=== PATIENT | female | born 1975 | race Asian ===

== ENCOUNTER 2019-12-22 09:34 | Emergency (ER) | payer OTHER ==
[~2019-12-22] VITALS: Ht 149.9 cm; Wt 49.9 kg
--- NOTE | 2019-12-22 09:36 | NUR ---
AAOx3 came to ER for worsening symptoms: cough, on/off fever, SOB, +COVID 19. Skin is warm and dry. Awaiting MD for eval.
--- NOTE | 2019-12-22 10:07 | NUR ---
Dr Matute at [facility] for eval.
[2019-12-22] MEDS ORDERED: KETOROLAC TROMETHAMINE INJ 30 MG/ML VIAL IM ONE (10:30)
[2019-12-22] MEDS ORDERED: KETOROLAC TROMETHAMINE 15 MG/ML VIAL ONE (10:34)
--- NOTE | 2019-12-22 12:00 | NUR ---
BLOOD DRAWN SENT TO THE LAB.
[2019-12-22 12:12] LABS: BASOPHILS % (AUTO) 0.2 % (0.0-2.0); EOSINOPHILS % (AUTO) 0.3 % (0.0-6.0); HEMATOCRIT 40 % (33-45); HEMOGLOBIN 13.7 g/dL (11.5-14.8); LYMPHOCYTES # (AUTO) 1.6 /CMM (0.8-4.8); LYMPHOCYTES % (AUTO) 24.1 % (20.0-44.0); MEAN CORPUSCULAR HGB CONC 34 g/dl (31.0-36.0); MEAN CORPUSCULAR VOLUME 89 fL (82-100); MONOCYTES # (AUTO) 0.7 /CMM (0.1-1.30); MONOCYTES % (AUTO) 10.9 % (2.0-12.0); NEUTROPHILS # (AUTO) 4.2 /CMM (1.8-8.9); NEUTROPHILS % (AUTO) 64.5 % (43.0-81.0); PLATELET COUNT (AUTO) 252 /CMM (150-450); RED BLOOD CELL COUNT(AUTO) 4.45 MIL/uL (4.0-5.2); WHITE BLOOD COUNT (AUTO) 6.6 K/uL (4.3-11.0)
[2019-12-22 12:29] LABS: CARBON DIOXIDE 26 mmol/L (21-32); CHLORIDE 100 mmol/L (98-107); CREATININE 0.6 mg/dL (0.6-1.3); GLUCOSE 89 mg/dL (74-106); POTASSIUM 3.7 mmol/L (3.5-5.1); SODIUM SERUM 136 mmol/L (136-145); UREA NITROGEN, BLOOD 7 mg/dL (7-18)
[2019-12-22 12:39] LABS: ABG BASE EXCESS -1.8 mmol/L; ABG OXYGEN SATURATION 96.8 % (92.0-98.5); ABG PCO2 32.6 mmHg (35.0-45.0); ABG PH 7.438 (7.350-7.450); ABG PO2 94.1 mmHg (75.0-100.0); AaDO2 16.6 mmHg; COHb 0.3 % (0.5-1.5); MetHb 0.2 % (0.0-1.5); O2Hb 96.3 % (94.0-97.0); SITE, ABG Left Brachial; VENT MODE, BG Room Air
[2019-12-22 12:40] LABS: CALCIUM, SERUM 8.7 mg/dL (8.5-10.1)
[2019-12-22 12:43] LABS: APPEARANCE,URINE SL CLOUDY (CLEAR); BILIRUBIN,URINE NEGATIVE (NEGATIVE); BLOOD, URINE LARGE Ery/uL (NEGATIVE); COLOR,URINE YELLOW (YELLOW); KETONES,URINE NEGATIVE (NEGATIVE); LEUKOCYTE ESTERASE ,URINE TRACE (NEGATIVE); NITRITE, URINE NEGATIVE (NEGATIVE); PH,URINE 7.5 (5.0-8.0); PROTEIN,URINE NEGATIVE (NEGATIVE); UGLUCOSE NEGATIVE (NEGATIVE); UROBILINOGEN,URINE 0.2 EU/dL (0.2)
[2019-12-22 12:45] LABS: ALANINE AMINOTRANSFERASE 27 U/L (12-78); ALBUMIN 3.9 g/dL (3.4-5.0); ALKALINE PHOSPHATASE 61 U/L (46-116); ASPARTATE AMINOTRANSFERASE 29 U/L (15-37); B-TYPE NATRIURETIC PEPTIDE 10 PG/ML (0-125); BILIRUBIN,TOTAL 0.4 mg/dL (0.2-1.0); TOTAL PROTEIN, SERUM 8.3 g/dL (6.4-8.2)
[2019-12-22 12:49] LABS: D-DIMER 0.41 mg/L(FEU (0.17-0.50)
[2019-12-22 12:53] LABS: CREATINE KINASE, TOTAL 175 U/L (26-192); FERRITIN 450 ng/mL (8-388)
[2019-12-22 13:06] LABS: BACTERIA,URINE Rare /HPF (None Seen); RBC,URINE 51-80 /HPF (0-2)
[2019-12-22 13:07] LABS: SQUAMOUS EPITHELIAL CELL,UR Few /HPF (None Seen)
--- NOTE | 2019-12-22 13:13 | NUR ---
BLANCA BURNS PAGED
--- NOTE | 2019-12-22 13:43 | NUR ---
REPORT GIVEN TO TIMOTHY BUCKNER. AWAITING TRANSFER TO FLOOR.
--- NOTE | 2019-12-22 14:00 | NUR ---
Adrien Reed DEHYDRATOR OPERATOR at for [facility].
--- NOTE | 2019-12-22 14:21 | NUR ---
IV removed. Catheter intact and site benign. Pressure and 4x4 applied to site. No bleeding noted.Patient discharged to home in stable condition. Written and verbal after care instructions given. Patient verbalizes understanding of instruction.
[2019-12-22 14:22] VITALS: BP 116/70
[2019-12-22] MEDS ORDERED: ENOXAPARIN SODIUM 40 MG/0.4 ML DISP.SYRIN SQ SCH (14:30)
[2019-12-22] MEDS ORDERED: POTASSIUM CHLORIDE 20 MEQ TAB.PRT.SR PO SCH (15:00)
== END 2019-12-22 14:28 | disposition home or self-care (01) ==
LOC: ER 09:39 → UNDOADMIN 13:47 → MEDSG2 13:47 → ER 14:28
DX: U07.1 COVID-19 (principal); J12.89 Other viral pneumonia; R94.5 Abnormal results of liver function studies; E87.6 Hypokalemia; R06.02 Shortness of breath; R79.89 Other specified abnormal findings of blood chemistry
CPT/HCPCS: 36415; 36600; 71045; 80053; 81001; 82550; 82728; 83605; 83615; 83735; 83880; 84145; 84484; 84703; 85025; 85378; 85730; 86140; 87040 ×2; 87081; 87086; 93005; 96372; 99285; J1885; 81000-TC

== ENCOUNTER 2021-03-20 06:37 | Inpatient (IN) | payer OTHER ==
[~2021-03-20] VITALS: Ht 149.9 cm; Wt 52.2 kg
--- NOTE | 2021-03-20 07:15 | NUR ---
BIB FOR ONGOING FEVER X 2 DAYS. ON BACTRIM FOR UTI SINCE LAST WEEK, +N/V. PATIENT A/OX4, BREATHING EVEN AND UNLABORED, NO SOB NOTED. NEEDS ATTENDED.
--- NOTE | 2021-03-20 07:18 | NUR ---
IV LINE ESTABLISHED, BLOOD DRAWN AND SENT TO LAB.
[2021-03-20] MEDS ORDERED: PIPERACILLIN /TAZOBACTAM 3.375 G VIAL IV ONE (07:22)
[2021-03-20 07:30] LABS: BASOPHILS # (AUTO) 0.1 K/uL (0.0-0.2); BASOPHILS % (AUTO) 0.2 % (0.0-2.0); HEMATOCRIT 34 % (33-45); HEMOGLOBIN 11.3 g/dL (11.5-14.8); LYMPHOCYTES # (AUTO) 1.1 K/uL (0.8-4.8); LYMPHOCYTES % (AUTO) 4.7 % (20.0-44.0); MEAN CORPUSCULAR HGB CONC 33 g/dl (31.0-36.0); MEAN CORPUSCULAR VOLUME 84 fL (82-100); MONOCYTES # (AUTO) 2.7 K/uL (0.1-1.30); MONOCYTES % (AUTO) 12.1 % (2.0-12.0); NEUTROPHILS # (AUTO) 18.4 K/uL (1.8-8.9); PLATELET COUNT (AUTO) 330 K/uL (150-450); RED BLOOD CELL COUNT(AUTO) 4.03 MIL/uL (4.0-5.2); WHITE BLOOD COUNT (AUTO) 22.2 K/uL (4.3-11.0)
[2021-03-20] MEDS ORDERED: IV NS 0.9% 1,000 ML BAG IV ONE ×2 (07:30→09:00)
[2021-03-20] MEDS ORDERED: ONDANSETRON HCL/PF - ER 4 MG/2 ML VIAL IV ONE (07:30)
[2021-03-20] MEDS ORDERED: ACETAMINOPHEN 325 MG TABLET PO ONE (07:30)
[2021-03-20] MEDS ORDERED: PIPERACILLIN /TAZOBACTAM 3.375 G in IV D5W 50 ML IV ONE (07:30)
--- NOTE | 2021-03-20 07:30 | NUR ---
patient assisted to restroom, ua sample obtained and sent to lab.
[2021-03-20] MEDS ORDERED: ONDANSETRON HCL/PF 4 MG/2 ML VIAL ONE ×2 (07:35→13:05)
[2021-03-20] MEDS ORDERED: ACETAMINOPHEN ES 500 MG TABLET ONE (07:36)
[2021-03-20 07:39] LABS: CALCIUM, SERUM 8.9 mg/dL (8.5-10.1); CARBON DIOXIDE 23 mmol/L (21-32); CHLORIDE 98 mmol/L (98-107); CREATININE 0.9 mg/dL (0.6-1.3); GLUCOSE 152 mg/dL (74-106); POTASSIUM 3.9 mmol/L (3.5-5.1); SODIUM SERUM 134 mmol/L (136-145); UREA NITROGEN, BLOOD 18 mg/dL (7-18)
--- NOTE | 2021-03-20 07:45 | NUR ---
CALLED DR. RAJI DAVIS [phone] REQUESTING A CALL BACK.
[2021-03-20 07:46] LABS: ALANINE AMINOTRANSFERASE 49 U/L (12-78); ALBUMIN 3.6 g/dL (3.4-5.0); ALKALINE PHOSPHATASE 74 U/L (46-116); ASPARTATE AMINOTRANSFERASE 26 U/L (15-37); BILIRUBIN,DIRECT 0.2 mg/dL (0.0-0.2); BILIRUBIN,TOTAL 0.6 mg/dL (0.2-1.0); TOTAL PROTEIN, SERUM 8.7 g/dL (6.4-8.2)
[2021-03-20 07:46] LABS: BILIRUBIN,URINE SMALL (NEGATIVE); COLOR,URINE YELLOW (YELLOW); LEUKOCYTE ESTERASE ,URINE Small (NEGATIVE); NITRITE, URINE Negative (NEGATIVE); PROTEIN,URINE 100 mg/dl (NEGATIVE); UGLUCOSE Negative (NEGATIVE)
[2021-03-20 07:49] LABS: BACTERIA,URINE Few /HPF (None Seen); SQUAMOUS EPITHELIAL CELL,UR Few /HPF (None Seen)
[2021-03-20] MEDS ORDERED: SULF1TAB48 PO (07:59)
[2021-03-20] MEDS ORDERED: ACET-868 PO (07:59)
--- NOTE | 2021-03-20 08:18 | NUR ---
MOVE SHEET SUBMITTED.
--- NOTE | 2021-03-20 08:28 | NUR ---
COVID SWAB SENT.
--- NOTE | 2021-03-20 09:56 | NUR ---
PATIENT RESTING, NO DISTRESS NOTED. TEMP IMPROVED, INFORMED DR. FOY. SHAUNA MESSINA DNP AT BEDSIDE FOR EVAL.
[2021-03-20] MEDS ORDERED: MAGNESIUM HYDROXIDE 30 ML UDC PO PRN (10:30)
[2021-03-20] MEDS ORDERED: MAG HYDROX/AL HYDROX/SIMETH 30 ML UDC PO PRN (10:30)
[2021-03-20] MEDS ORDERED: MORPHINE SULFATE INJ 2 MG/ML DISP.SYRIN IV PRN (10:30)
[2021-03-20] MEDS ORDERED: Z GUARD REMEDY 2 OZ OINT TP PRN (10:30)
--- NOTE | 2021-03-20 11:55 | NUR ---
ORDERED PATIENT LIQUID DIET.
[2021-03-20] MEDS ORDERED: PIPERACILLIN /TAZOBACTAM 3.375 G in IV D5W 50 ML IV SCH (12:00)
[2021-03-20] MEDS ORDERED: PIPERACILLIN /TAZOBACTAM 3.375 G in IV D5W 100 ML IV SCH (12:30)
[2021-03-20] MEDS ORDERED: ACETAMINOPHEN 325 MG TABLET ONE (12:54)
[2021-03-20] MEDS ORDERED: ENOXAPARIN SODIUM 40 MG/0.4 ML DISP.SYRIN SQ ONE (12:54)
[2021-03-20] MEDS: ENOXAPARIN SODIUM 40 MG/0.4 ML DISP.SYRIN SQ SCH (13:00)
[2021-03-20] MEDS: ONDANSETRON HCL/PF 4 MG/2 ML VIAL IVP PRN ×3 (13:09→22:45)
[2021-03-20] MEDS: ACETAMINOPHEN 325 MG TABLET PO PRN ×2 (13:29→18:53)
--- NOTE | 2021-03-20 13:30 | NUR ---
c/o headache, tylenol provided for fever and headache,
[2021-03-20] MEDS: PIPERACILLIN /TAZOBACTAM 3.375 G in IV D5W 100 ML IV SCH ×2 (13:42→20:49)
--- NOTE | 2021-03-20 14:37 | NUR ---
REPORT GIVEN TO DEEPTHI BUCKNER FOR JUDY.
--- NOTE | 2021-03-20 14:50 | NUR ---
RN NOTES PATIENT TRANSFERRED TO UNIT AT ROOM 317-2 VIA [facility], ACCOMPANIED BY 1 ER NURSE. PATIENENT ABLE TO AMBULATE TO BED.
--- NOTE | 2021-03-20 14:50 | NUR ---
PATIENT TRANSFERRED TO ROOM 317-1. IN STABLE CONDITION.
[2021-03-20 16:12] VITALS: BP 106/61
[2021-03-20] MEDS: IV D5/0.45 NACL 1,000 ML IV PRN (16:18)
--- NOTE | 2021-03-20 18:50 | NUR ---
MS RN CLOSING NOTE PT IS IN BED AWAKE. AOx4. PT IS STABLE ON RA, NO SOB NOTED. NO S/S OF RESPIRATORY DISTRESS. NO C/O OF PAIN. IV ACCESS IN R AC 20 GAUGE IS INTACT, PATENT, AND FLUSHING WELL WITH IV FLUIDS RUNNING. BED IN LOWEST LOCKED POSITION, HOB ELEVATED, SIDE RAILS UPX2. CALL LIGHT AND TABLE WITHIN REACH. WILL ENDORSE TO ONCOMING SHIFT.
--- NOTE | 2021-03-20 19:30 | NUR ---
RN OPENING NOTE PATIENT IS IN BED SITTING UP, AWAKE. PATIENT IS A/O X 4. PATIENT IS ABLE TO MAKE NEEDS KNOWN. PATIENT CURRENTLY HAS A FEVER 102.9, PATIENT WAS GIVEN TYLENOL AT 1853, PROVIDED PATIENT EXTRA COLD PACKS FOR HER LEGS TO COOL DOWN. WILL REASSESS AT A LATER TIME. PATIENT DOES NOT COMPLAIN OF ANY PAIN, N/V. IV FLUIDS RUNNING RAC 20 G D5 1/2 NS @125 ML/HR. PATIENT IS TOLERATING RA WITH O2 SAT AT 99%. TELE MONITOR READS 98 BPM SR. SAFETY MEASURES IN PLACE: CALL LIGHT WITHIN REACH, SIDE RAILS UP, BED IN LOCKED AND IN LOWEST POSITION. WILL MONITOR PATIENT CLOSELY.
[2021-03-20 20:09] VITALS: BP 115/63
--- NOTE | 2021-03-20 22:45 | NUR ---
RN NOTE TEMP IS 99.1. PATIENT PRESENTS WITH CHILLS AT THIS TIME. ZOFRAN GIVEN FOR NAUSEA.
[2021-03-21] VITALS: BP 108/54
[2021-03-21] MEDS: IV D5/0.45 NACL 1,000 ML IV PRN ×3 (00:01→19:57)
[2021-03-21] MEDS: ZOLPIDEM TARTRATE 5 MG TABLET PO PRN (00:38)
[2021-03-21] MEDS: ACETAMINOPHEN 325 MG TABLET PO PRN ×4 (00:58→18:43)
[2021-03-21 04:00] VITALS: BP 111/64
[2021-03-21] MEDS: PIPERACILLIN /TAZOBACTAM 3.375 G in IV D5W 100 ML IV SCH ×3 (04:34→22:39)
[2021-03-21 06:06] LABS: BASOPHILS % (AUTO) 0.2 % (0.0-2.0); HEMATOCRIT 28 % (33-45); HEMOGLOBIN 9.5 g/dL (11.5-14.8); LYMPHOCYTES # (AUTO) 1.6 K/uL (0.8-4.8); LYMPHOCYTES % (AUTO) 11.8 % (20.0-44.0); MEAN CORPUSCULAR HGB CONC 34 g/dl (31.0-36.0); MEAN CORPUSCULAR VOLUME 85 fL (82-100); MONOCYTES # (AUTO) 1.7 K/uL (0.1-1.30); MONOCYTES % (AUTO) 12.7 % (2.0-12.0); NEUTROPHILS # (AUTO) 10.2 K/uL (1.8-8.9); NEUTROPHILS % (AUTO) 75.3 % (43.0-81.0); PLATELET COUNT (AUTO) 271 K/uL (150-450); RED BLOOD CELL COUNT(AUTO) 3.31 MIL/uL (4.0-5.2); WHITE BLOOD COUNT (AUTO) 13.5 K/uL (4.3-11.0)
[2021-03-21 06:40] LABS: CREATININE 0.6 mg/dL (0.6-1.3); MAGNESIUM 2.5 mg/dL (1.8-2.4); PHOSPHORUS 2.1 mg/dL (2.5-4.9); POTASSIUM 3.5 mmol/L (3.5-5.1)
[2021-03-21 06:46] LABS: THYROID STIMULATING HORMONE 1.114 uIU/mL (0.358-3.74)
--- NOTE | 2021-03-21 06:47 | NUR ---
RN CLOSING NOTE PATIENT IS IN BED, AWAKE. PATIENT DOES NOT COMPLAIN OF ANY PAIN AT THIS TIME. INSERTED NEW IV ACCES LEFT AC 22 G, RUNNING D5 1/2 NS AT 125 ML/HR AND ONGOING ZOSYN. RAC IV ACCESS INFILTRATED ICE PACK ON THE SITE. TELE MONITOR READS ST 110 BPM. PATIENT HAS CHILLS AT THIS TIME, NO FEVER. TEMP IS 98.3 F. PATIENT REQUESTS TYLENOL FOR THE CHILLS. INFORMED ISAURO BARREL FILLER HEAD OF PATIENT HAVING DIARRHEA, ORDERED STOOL CULTURE. BREATHING EVEN AND UNLABORED, ALL ORDERS CARRIED OUT. SAFETY MEASURES IMPLEMENTED. WILL ENDORSE TO DAY SHIFT NURSE FOR UJDY.
--- NOTE | 2021-03-21 07:11 | NUR ---
TEMP 102.4 F, TYLENOL GIVEN
[2021-03-21 08:00] VITALS: BP_SYST 117; BP_SYST 120; BP_DIAS 69; BP_DIAS 82
--- NOTE | 2021-03-21 08:13 | NUR ---
RN OPENING NOTES RECEIVED PATIENT AWAKE IN BED. ALERT AND ORIENTED X 4. NO SIGNS OR SYMPTOMS OF DISTRESS NOTED. PATIENT IS ABLE TO MAKE NEEDS KNOWN. IV ACCESS LAC#22 PATENT AND INTACT. SAFETY MEASURES IN PLACE WITH BED AT LOWEST POSITION AND SIDE RAILS UP X 2. CALL LIGHT IS WITHIN REACH. WILL CONTINUE TO MONITOR THROUGHOUT SHIFT.
[2021-03-21] MEDS ORDERED: K PHOS NEUTRAL 250 MG TABLET PO ONE (09:00)
[2021-03-21] MEDS: ENOXAPARIN SODIUM 40 MG/0.4 ML DISP.SYRIN SQ SCH ×2 (09:00→09:13)
--- NOTE | 2021-03-21 09:52 | NUR ---
MS RN NOTES PATIENT WAS SEEN BY DR. SHAUNA MESSINA, WITH NEW ORDER FOR LACTOBACILLUS PO BID. ORDERS READ BACK AND CARRIED OUT.
[2021-03-21 16:00] VITALS: BP 124/72
[2021-03-21] MEDS: LACTOBACILLUS RHAMNOSUS GG 1 EACH CAP.SPRINK PO SCH (17:09)
--- NOTE | 2021-03-21 19:35 | NUR ---
RN NOTES RECEIVED PATIENT AWAKE IN HER BED, A/OX4, AMBULATORY SR ON TELE MONITOR, HR-94, PATIENT HAS TEMP 100.3, PATIENT JUST RECEIVED TYLENOL 650MG PO WILL CONTINUE TO MONITOR, DENIES ANY PAIN, NO SOB, CALL LIGHT WITHIN REACH, [id number], WILL COTNINUE TO MONITOR
--- NOTE | 2021-03-21 19:43 | NUR ---
MS RN CLOSING NOTES PATIENT AWAKE IN BED. ALERT AND ORIENTED X 4. TYLENOL GIVEN AT 1842 WITH TEMPERATURE OF 99.9. NO SIGNS OR SYMPTOMS OF DISTRESS NOTED. PATIENT IS ABLE TO MAKE NEEDS KNOWN. IV ACCESS LAC#22 PATENT AND INTACT WITH D5 1/2 NS RUNNING AT 75 MLS/HR. SAFETY MEASURES IN PLACE WITH BED AT LOWEST POSITION AND SIDE RAILS UP X 2. CALL LIGHT IS WITHIN REACH. WILL ENDORSE CONTINUITY OF CARE TO NEXT SHIFT.
[2021-03-21 20:00] VITALS: BP 112/58
--- NOTE | 2021-03-21 20:00 | NUR ---
RN NOTES NOTICED IV LINE IS SWOLLEN STOPPED IV FLUID ADN WILL INSERT A NEW IV ACCESS
--- NOTE | 2021-03-21 22:10 | NUR ---
RN NOTES PATIENT IV A LITTLE BIT SWOLLEN, ICU CHARGE NURSE CAME AND INSERTED A NEW IC LINE ON THE LEFT HAND GAUGE 20
[2021-03-22] VITALS: BP 124/60
--- NOTE | 2021-03-22 01:40 | NUR ---
RN NOTES PATIENT ASKED FOR SLEEPING PILLS- AMBIEN 5MG PO GIVEN ORDERED
[2021-03-22] MEDS: ZOLPIDEM TARTRATE 5 MG TABLET PO PRN (01:41)
[2021-03-22] MEDS: ACETAMINOPHEN 325 MG TABLET PO PRN (01:47)
--- NOTE | 2021-03-22 01:47 | NUR ---
RN NOTES PATIENT HAS TEMP 100.2-TYLENOL 650MG PO GIVEN, WILL CONTINUE TO MONITOR
[2021-03-22 04:00] VITALS: BP 120/65
[2021-03-22] MEDS: PIPERACILLIN /TAZOBACTAM 3.375 G in IV D5W 100 ML IV SCH ×3 (05:26→20:40)
[2021-03-22 06:39] LABS: BASOPHILS % (AUTO) 0.1 % (0.0-2.0); EOSINOPHILS % (AUTO) 0.4 % (0.0-6.0); HEMATOCRIT 27 % (33-45); HEMOGLOBIN 9.3 g/dL (11.5-14.8); LYMPHOCYTES # (AUTO) 2.2 K/uL (0.8-4.8); LYMPHOCYTES % (AUTO) 21.4 % (20.0-44.0); MEAN CORPUSCULAR HGB CONC 34 g/dl (31.0-36.0); MEAN CORPUSCULAR VOLUME 84 fL (82-100); MONOCYTES # (AUTO) 1.2 K/uL (0.1-1.30); NEUTROPHILS # (AUTO) 6.8 K/uL (1.8-8.9); NEUTROPHILS % (AUTO) 66.1 % (43.0-81.0); PLATELET COUNT (AUTO) 303 K/uL (150-450); RED BLOOD CELL COUNT(AUTO) 3.25 MIL/uL (4.0-5.2); WHITE BLOOD COUNT (AUTO) 10.3 K/uL (4.3-11.0)
--- NOTE | 2021-03-22 06:51 | NUR ---
RN NOTES AWAKE, MORNING CARE RENDERED. LATEST TEMP.98.1, DENIES PAIN, MORNING CARE RENDERED,PT. NEEDS ATTENDED
[2021-03-22 06:57] LABS: CREATININE 0.5 mg/dL (0.6-1.3); MAGNESIUM 2.4 mg/dL (1.8-2.4); PHOSPHORUS 3.1 mg/dL (2.5-4.9); POTASSIUM 2.9 mmol/L (3.5-5.1)
--- NOTE | 2021-03-22 07:07 | NUR ---
RN OPENING NOTES RECEIVE PT AWAKE IN BED AT THIS TIME. AOX4. NO SOB NOTED, NO S/O OF ANY ACUTE DISTRESS NOTED, NO C/O PAIN AT THIS. BREATHING EVEN AND UNLABORED.STABLE ON RA. IV ACCESS IN LEFT HAND G#20, INTACT, PATENT AND FLUSHING WELL. PATIENT ON EXTERNAL SECOND SHIFT SUPERVISOR READING SR 86. SAFETY PRECAUTIONS IN PLACE AND MAINTAINED AT ALL TIMES. BED IN LOWEST LOCKED POSITION, HOB ELEVATED, SIDE RAILS UP X2, CALL LIGHT AND TABLE WITHIN REACH. WILL CONTINUE TO MONITOR
[2021-03-22 08:00] VITALS: BP 117/75
[2021-03-22] MEDS: LACTOBACILLUS RHAMNOSUS GG 1 EACH CAP.SPRINK PO SCH ×2 (08:52→17:51)
[2021-03-22] MEDS: ENOXAPARIN SODIUM 40 MG/0.4 ML DISP.SYRIN SQ SCH (09:00)
[2021-03-22] MEDS: POTASSIUM CHLORIDE 20 MEQ TAB.PRT.SR PO SCH ×3 (09:49→12:03)
[2021-03-22] MEDS: IV D5/0.45 NACL 1,000 ML IV PRN ×2 (10:02→18:56)
[2021-03-22 16:39] VITALS: BP 116/70
--- NOTE | 2021-03-22 18:50 | NUR ---
RN CLOSING NOTES PATIENT AWAKE IN BED AT THIS TIME. REMAINED STABLE THROUGHOUT SHIFT. ALL CARE, NEEDS, AND MEDICATIONS ADMINISTERED PER ORDER. PATIENT KEPT CLEAN AND DRY. ASPIRATIONS AND SAFETY PRECAUTIONS IN PLACE AND MAINTAINED AT ALL TIMES. BED IN LOWEST LOCKED POSITION, HOB ELEVATED, SIDE RAILS UP X2, CALL LIGHT AND TABLE WITHIN REACH. WILL ENDORSE TO RIVET HOLE PUNCHER RN FOR JUDY
--- NOTE | 2021-03-22 19:31 | NUR ---
received in bed alert and orientated x4 call light within her reach smiling denies pain talking on her phone
[2021-03-22 20:00] VITALS: BP 117/71
[2021-03-23] VITALS: BP 111/69
[2021-03-23] MEDS: ZOLPIDEM TARTRATE 5 MG TABLET PO PRN (00:24)
--- NOTE | 2021-03-23 04:19 | NUR ---
Closing Notes: Alert and orientated this 12 hours. Cooperative and pleasent. Ambulates to the bathroom steady on her legs. Denies pain. Ambien given for sleep and effective. came to visit her at the beginning od the shift. She speaks of going home in the AM
[2021-03-23] MEDS: PIPERACILLIN /TAZOBACTAM 3.375 G in IV D5W 100 ML IV SCH ×3 (04:35→20:18)
[2021-03-23 07:28] LABS: BASOPHILS % (AUTO) 0.5 % (0.0-2.0); EOSINOPHILS % (AUTO) 0.7 % (0.0-6.0); HEMATOCRIT 26 % (33-45); HEMOGLOBIN 8.9 g/dL (11.5-14.8); LYMPHOCYTES # (AUTO) 1.8 K/uL (0.8-4.8); LYMPHOCYTES % (AUTO) 26.8 % (20.0-44.0); MEAN CORPUSCULAR HGB CONC 34 g/dl (31.0-36.0); MEAN CORPUSCULAR VOLUME 85 fL (82-100); MONOCYTES # (AUTO) 0.6 K/uL (0.1-1.30); MONOCYTES % (AUTO) 8.4 % (2.0-12.0); NEUTROPHILS # (AUTO) 4.3 K/uL (1.8-8.9); NEUTROPHILS % (AUTO) 63.6 % (43.0-81.0); PLATELET COUNT (AUTO) 344 K/uL (150-450); RED BLOOD CELL COUNT(AUTO) 3.04 MIL/uL (4.0-5.2); WHITE BLOOD COUNT (AUTO) 6.8 K/uL (4.3-11.0)
--- NOTE | 2021-03-23 07:30 | NUR ---
RN OPENING NOTES RECEIVED PATIENT AWAKE IN BED AT THIS TIME, AOX4 WITH NO COMPLAINTS OF PAIN AND SOB. NO S/O OF ANY ACUTE DISTRESS NOTED, NO C/O PAIN AT THIS. BREATHING EVEN AND UNLABORED.STABLE ON RA. IV ACCESS IN RIGHT HAND G#20, INTACT, PATENT AND FLUSHING WELL. PATIENT ON EXTERNAL GENERAL I FARMWORKER. SAFETY PRECAUTIONS IN PLACE AND MAINTAINED AT ALL TIMES. BED IN LOWEST LOCKED POSITION, HOB ELEVATED, SIDE RAILS UP X2, CALL LIGHT AND TABLE WITHIN REACH. WILL CONTINUE TO MONITOR
[2021-03-23 07:56] LABS: CALCIUM, SERUM 8.3 mg/dL (8.5-10.1); CREATININE 0.5 mg/dL (0.6-1.3); POTASSIUM 3.5 mmol/L (3.5-5.1)
[2021-03-23 08:00] VITALS: BP 121/75
[2021-03-23] MEDS: ENOXAPARIN SODIUM 40 MG/0.4 ML DISP.SYRIN SQ SCH (09:00)
[2021-03-23] MEDS: LACTOBACILLUS RHAMNOSUS GG 1 EACH CAP.SPRINK PO SCH ×2 (09:23→17:05)
[2021-03-23 12:00] VITALS: BP 119/69
[2021-03-23 16:00] VITALS: BP 118/76
--- NOTE | 2021-03-23 18:54 | NUR ---
MS RN CLOSING NOTES PATIENT AWAKE IN BED, ALERT AND ORIENTED X 4 WITH NO SIGNS OF DISTRESS NOTED. PATIENT IS ABLE TO MAKE NEEDS KNOWN. IV ACCESS LAC#22 PATENT AND INTACT WITH D5 1/2 NS RUNNING AT 75 MLS/HR. SAFETY MEASURES IN PLACE WITH BED AT LOWEST POSITION AND SIDE RAILS UP X 2. CALL LIGHT IS WITHIN REACH. WILL ENDORSE CONTINUITY OF CARE TO NEXT SHIFT.
[2021-03-23] MEDS: IV D5/0.45 NACL 1,000 ML IV PRN (19:28)
[2021-03-23 20:00] VITALS: BP 126/75
--- NOTE | 2021-03-23 23:00 | NUR ---
PATIENT REFUSING MIDNIGHT VITAL SIGN CHECK. STATES, "I WANT TO SLEEP AND PREFER NOT TO BE DISTURBED." WILL CONT TO MONITOR.
[2021-03-24] MEDS: IV D5/0.45 NACL 1,000 ML IV PRN (03:11)
[2021-03-24 04:00] VITALS: BP 109/67
[2021-03-24] MEDS: PIPERACILLIN /TAZOBACTAM 3.375 G in IV D5W 100 ML IV SCH (05:45)
[2021-03-24 08:00] VITALS: BP 123/77
--- NOTE | 2021-03-24 08:01 | NUR ---
MS RN OPENING NOTE PATIENT IS IN BED RESTING, PATIENT IS IN NO ACUTE DISTRESS. SAFETY PRECAUTIONS ARE ON, BED IS LOCKED IN THE LOWEST POSITION, WITH SIDE RAILS UP, CALL LIGHT WITHIN REACH, WILL CONTINUE TO MONITOR.
[2021-03-24] MEDS: ENOXAPARIN SODIUM 40 MG/0.4 ML DISP.SYRIN SQ SCH (08:25)
[2021-03-24] MEDS: LACTOBACILLUS RHAMNOSUS GG 1 EACH CAP.SPRINK PO SCH (08:25)
[2021-03-24] MEDS ORDERED: ZOLP5TAB2 PO (09:12)
[2021-03-24] MEDS ORDERED: HYDR-3972 PO (09:12)
[2021-03-24] MEDS ORDERED: CEPH250S PO (09:12)
--- NOTE | 2021-03-24 12:30 | NUR ---
MS AUTOMATIC VULCANIZING OPERATOR NOTE PATIENT IS MEDICALLY STABLE TO BE DISCHARGED. PATIENT IS IN NO ACUTE DISTRESS. PATIENTS NEEDS WERE ADDRESSED DURING THE STAY. DISCHARGE INSTRUCTIONS PROVIDED, PATIENT VERBALIZED UNDERSTANDING. PATIENTS SKIN IS INTACT, NO WOUNDS NOTED. BELONGING LIST WENT OVER AND SIGNED. PATIENTS IV LINE AND ID BAND REMOVED. PATIENT WAS PICKED UP BY HER . MD IS AWARE OF DISCHARGE.
== END 2021-03-24 12:00 | disposition home or self-care (01) | DRG 872 ==
LOC: ER 06:43 → TRANSITION 11:29 → TELE 14:19
PROVIDERS: ADMIT Nurse Practitioner Acute Care; ATTEND Nurse Practitioner Acute Care
DX: A41.9 Sepsis, unspecified organism (principal); E87.1 Hypo-osmolality and hyponatremia; N10 Acute pyelonephritis; N20.0 Calculus of kidney; R73.9 Hyperglycemia, unspecified; D64.9 Anemia, unspecified; E83.39 Other disorders of phosphorus metabolism; E86.1 Hypovolemia; Z20.822 Contact with and (suspected) exposure to COVID-19; Z86.16 Personal history of COVID-19; Z87.440 Personal history of urinary (tract) infections; Z87.442 Personal history of urinary calculi; B96.1 Klebsiella pneumoniae [K. pneumoniae] as the cause of diseases classified elsewhere; K76.0 Fatty (change of) liver, not elsewhere classified; Z98.890 Other specified postprocedural states; E87.6 Hypokalemia
CPT/HCPCS: 36415; 71045-TC; 80048-TC; 80061-TC; 80076-TC; 81001; 83605-TC; 83735-TC; 84100-TC; 84443-TC; 84484-TC; 84703-TC; 85025-TC; 85730-TC; 87040-TC; 87045-TC; 87081-TC; 87086-TC; 87186-TC; C9803; G0378; J1650; J2405; J2543; J3490; J7030; J7050; J7060

== ENCOUNTER 2022-03-04 16:39 | Inpatient (IN) | payer OTHER ==
[~2022-03-04] VITALS: Ht 149.9 cm; Wt 56.3 kg
[~2022-03-04 16:39] MED LIST: ACET-868 PO; CEPH250S PO; HYDR-3972 PO; ZOLP5TAB2 PO
--- NOTE | 2022-03-04 16:41 | NUR ---
BIBS FOR FEVER x 2-3 DAYS AFTER COMPLETING A COURSE OF ANTIBIOTICS SINCE DECEMBER 2021 PLACED ON MACROBID/KEFLEX/AMOXICILLIN/KEFLEX AND ANTI-YEAST MEDICINE. C/O RIGHT LOWER BACK PAIN. TO ER BED 6, HOOKED TO MONITOR, CHANGED TO HOSP GOWN, WARM BLANKET PROVIDED. PATIENT AAO x 4. NOT IN DISTRESS. AWAITING MD ESCAMILLA
--- NOTE | 2022-03-04 16:47 | NUR ---
DR LONGO AT BEDSIDE
[2022-03-04] MEDS ORDERED: IV NS 0.9% 1,000 ML BAG IV ONE (17:00)
[2022-03-04] MEDS ORDERED: IOHEXOL-300 100 ML VIAL IV ONE (17:07)
[2022-03-04] MEDS ORDERED: IV NS 0.9% 250 ML IV ONE (17:08)
[2022-03-04] MEDS ORDERED: CT SWABBABLE VALVE TRANS SET 1 EA INFUS.SET MC ONE (17:08)
--- NOTE | 2022-03-04 17:12 | NUR ---
URINE SAMPLE COLLECTED AND SENT TO LAB
[2022-03-04 17:33] LABS: BASOPHILS % (AUTO) 0.2 % (0.0-2.0); EOSINOPHILS % (AUTO) 0.1 % (0.0-6.0); HEMATOCRIT 35 % (33-45); HEMOGLOBIN 11.8 g/dL (11.5-14.8); LYMPHOCYTES # (AUTO) 1.2 K/uL (0.8-4.8); LYMPHOCYTES % (AUTO) 7.6 % (20.0-44.0); MEAN CORPUSCULAR HGB CONC 34 g/dl (31.0-36.0); MEAN CORPUSCULAR VOLUME 88 fL (82-100); MONOCYTES # (AUTO) 1.2 K/uL (0.1-1.30); NEUTROPHILS # (AUTO) 12.8 K/uL (1.8-8.9); NEUTROPHILS % (AUTO) 84.1 % (43.0-81.0); PLATELET COUNT (AUTO) 236 K/uL (150-450); RED BLOOD CELL COUNT(AUTO) 3.94 MIL/uL (4.0-5.2); WHITE BLOOD COUNT (AUTO) 15.2 K/uL (4.3-11.0)
[2022-03-04 17:40] LABS: POTASSIUM 3.3 mmol/L (3.5-5.1)
[2022-03-04 17:47] LABS: ALBUMIN 3.8 g/dL (3.4-5.0); BILIRUBIN,DIRECT 0.2 mg/dL (0.0-0.2); BILIRUBIN,TOTAL 1.4 mg/dL (0.2-1.0); CALCIUM, SERUM 8.6 mg/dL (8.5-10.1); CREATININE 0.6 mg/dL (0.6-1.3)
[2022-03-04] MEDS ORDERED: ALBU18HF2 IH (17:54)
[2022-03-04] MEDS ORDERED: MORPHINE SULFATE INJ 4 MG/ML DISP.SYRIN ONE (17:57)
[2022-03-04] MEDS ORDERED: ONDANSETRON HCL/PF 4 MG/2 ML VIAL ONE (17:57)
[2022-03-04] MEDS ORDERED: MORPHINE SULFATE INJ 2 MG/ML DISP.SYRIN IV ONE (18:00)
[2022-03-04] MEDS ORDERED: ONDANSETRON HCL/PF - ER 4 MG/2 ML VIAL IV ONE (18:00)
[2022-03-04] MEDS ORDERED: PIPERACILLIN /TAZOBACTAM 3.375 G VIAL IV ONE (18:12)
[2022-03-04 18:18] LABS: BILIRUBIN,URINE NEGATIVE (NEGATIVE); COLOR,URINE YELLOW (YELLOW); LEUKOCYTE ESTERASE ,URINE MODERATE (NEGATIVE); NITRITE, URINE POSITIVE (NEGATIVE); PROTEIN,URINE NEGATIVE (NEGATIVE); UGLUCOSE NEGATIVE (NEGATIVE); UROBILINOGEN,URINE 0.2 EU/dL (0.2)
[2022-03-04] MEDS ORDERED: PIPERACILLIN /TAZOBACTAM 2.25 G in IV D5W 50 ML IV ONE (18:30)
[2022-03-04] MEDS ORDERED: PIPERACILLIN /TAZOBACTAM 3.375 G in IV D5W 50 ML IV ONE (18:30)
[2022-03-04 18:38] LABS: BACTERIA,URINE Many /HPF (None Seen); SQUAMOUS EPITHELIAL CELL,UR Moderate /HPF (None Seen)
[2022-03-04 18:39] LABS: WBC,URINE 21-50 /HPF (0-3)
--- NOTE | 2022-03-04 18:39 | NUR ---
COVID SWAB OBTAINED AND SENT TO LAB
[2022-03-04] MEDS ORDERED: ACETAMINOPHEN 325 MG TABLET ONE (19:32)
[2022-03-04] MEDS ORDERED: ACETAMINOPHEN 325 MG TABLET PO ONE (20:00)
[2022-03-04] MEDS ORDERED: HYDROCODONE/APAP 5/325MG TABLET PO PRN (20:00)
[2022-03-04] MEDS ORDERED: ACETAMINOPHEN 325 MG TABLET PO PRN (20:00)
[2022-03-04] MEDS ORDERED: Z GUARD REMEDY 4 OZ OINT TP PRN (20:00)
[2022-03-04] MEDS ORDERED: MAG HYDROX/AL HYDROX/SIMETH 30 ML UDC PO PRN (20:00)
--- NOTE | 2022-03-04 20:07 | NUR ---
REPORT GIVEN TO SITA FIORE
[2022-03-04 20:20] VITALS: BP 114/68
--- NOTE | 2022-03-04 20:20 | NUR ---
PATIENT ARRIVED FROM ER, AWAKE, A/O X4. NO S/S OF DISTRESS NOTED. NO COMPLAIN OF PAIN. CALL LIGHT WITHIN REACH. BED IN LOWEST AND LOCKED POSITION. AMBULATORY.
[2022-03-04] MEDS ORDERED: MORPHINE SULFATE INJ 4 MG/ML DISP.SYRIN IV PRN (20:30)
[2022-03-04] MEDS ORDERED: MAGNESIUM HYDROXIDE 30 ML UDC PO PRN (22:00)
[2022-03-04] MEDS ORDERED: ZOLPIDEM TARTRATE 5 MG TABLET PO PRN (22:00)
--- NOTE | 2022-03-05 00:08 | NUR ---
INFORMED CONNER RIVERA RE: TEMP 102.9. AND TYLENOL IS NOT DUE YET TILL 0129. Addendum: 03/05/22 at 0310 by ADEBAYO STEWART RN [id number]=[id number]
--- NOTE | 2022-03-05 00:10 | NUR ---
cooling measures done.
[2022-03-05] MEDS: PIPERACILLIN /TAZOBACTAM 3.375 G in IV D5W 50 ML IV SCH ×5 (00:23→23:35)
[2022-03-05] MEDS: IBUPROFEN 600 MG TABLET PO PRN ×2 (00:51→19:56)
[2022-03-05 06:49] LABS: BASOPHILS % (AUTO) 0.1 % (0.0-2.0); HEMATOCRIT 31 % (33-45); HEMOGLOBIN 10.9 g/dL (11.5-14.8); LYMPHOCYTES # (AUTO) 1.2 K/uL (0.8-4.8); LYMPHOCYTES % (AUTO) 9.8 % (20.0-44.0); MEAN CORPUSCULAR HGB CONC 35 g/dl (31.0-36.0); MEAN CORPUSCULAR VOLUME 89 fL (82-100); MONOCYTES # (AUTO) 1.1 K/uL (0.1-1.30); MONOCYTES % (AUTO) 8.7 % (2.0-12.0); NEUTROPHILS # (AUTO) 10.4 K/uL (1.8-8.9); NEUTROPHILS % (AUTO) 81.4 % (43.0-81.0); PLATELET COUNT (AUTO) 188 K/uL (150-450); WHITE BLOOD COUNT (AUTO) 12.8 K/uL (4.3-11.0)
[2022-03-05 07:20] LABS: CALCIUM, SERUM 8.5 mg/dL (8.5-10.1); CREATININE 0.7 mg/dL (0.6-1.3); MAGNESIUM 2.2 mg/dL (1.8-2.4); PHOSPHORUS 4.1 mg/dL (2.5-4.9); POTASSIUM 3.1 mmol/L (3.5-5.1)
[2022-03-05 08:00] VITALS: BP 103/52
[2022-03-05] MEDS: POTASSIUM CHLORIDE 10 MEQ TABLET.SA PO SCH ×2 (08:46→13:28)
[2022-03-05] MEDS: ACETAMINOPHEN 325 MG TABLET PO PRN ×2 (10:24→15:27)
[2022-03-05] MEDS: MAG HYDROX/AL HYDROX/SIMETH 30 ML UDC PO PRN (10:47)
--- NOTE | 2022-03-05 10:52 | NUR ---
given tylenol 650 mg po for headache and maalox for nausea.additionally given zofran.
[2022-03-05] MEDS: ONDANSETRON HCL/PF 4 MG/2 ML VIAL IVP PRN ×2 (10:54→15:28)
[2022-03-05] MEDS: GUAIFENESIN/D-METHORPHAN HB 5 ML UDC PO PRN ×2 (10:57→19:56)
--- NOTE | 2022-03-05 11:01 | NUR ---
given robitussin for cough.
--- NOTE | 2022-03-05 15:18 | NUR ---
TUBE ROLLER REPORTS PT. HAS TEMP 101.3.RN TO REVIEW MED LIST
--- NOTE | 2022-03-05 15:54 | NUR ---
PT. MEDICATED WITH MORPHINE FOR ABD. AND BACK PAIN,TYLENOL FOR FEVER AND ZOFRAN BECAUSE SHE IS WORRIED ABOUT EFFECTS OF MORPHINE,ADDITIONALLY TEXTED REGARDING PT. STATUS.AWAITING CALL BACK.
[2022-03-05 16:00] VITALS: BP 120/46
--- NOTE | 2022-03-05 16:00 | NUR ---
ice packs applied due to fever.
--- NOTE | 2022-03-05 16:14 | NUR ---
RECEIVED RESPONSE FROM MD-AWAITING BLOOD CULTURES.
--- NOTE | 2022-03-05 17:27 | NUR ---
dr. vaca in to see pt.
--- NOTE | 2022-03-05 19:30 | NUR ---
MS/RN OPENING NOTE RECEIVED PATIENT RESTING IN BED. AWAKE, ALERT AND ORIENTED X 4. ABLE TO MAKE NEEDS KNOWN. DENIES PAIN AT THIS TIME. CONTINUES ON ROOM AIR WITH NO S/SX OF RESPIRATORY DISTRESS NOTED. IV ACCESS TO RIGHT AC #20G INTACT AND PATENT. CONTINUES ON IV ABX. PATIENT IS AMBULATORY WITH STEADY GAIT. DENIES NAUSEA OR VOMITING AT THIS TIME. CALL LIGHT WITHIN REACH. ASPIRATION, FALL AND SAFETY PRECAUTIONS MAINTAINED. ALL NEEDS ATTENDED TO AT THIS TIME.
[2022-03-05 20:00] VITALS: BP 132/75
--- NOTE | 2022-03-05 20:00 | NUR ---
MS/RN NOTE PATIENT WITH C/O DRY COUGH AND MILD HEADACHE PAIN 10/03. ADMINISTERED PRN ROBITUSSIN AND MOTRIN PER MD ORDERS. ALL NEEDS ATTENDED TO AT THIS TIME.
[2022-03-06] MEDS: PIPERACILLIN /TAZOBACTAM 3.375 G in IV D5W 50 ML IV SCH ×2 (05:51→11:53)
[2022-03-06] MEDS: IBUPROFEN 600 MG TABLET PO PRN (06:00)
--- NOTE | 2022-03-06 06:30 | NUR ---
MS/RN CLOSING NOTE PATIENT CURRENTLY RESTING IN BED. AWAKE, ALERT AND ORIENTED X 4. ABLE TO MAKE NEEDS KNOWN. DENIES PAIN AT THIS TIME. CONTINUES ON ROOM AIR WITH NO S/SX OF RESPIRATORY DISTRESS NOTED. IV ACCESS TO RIGHT AC #20G INTACT AND PATENT. CONTINUES ON IV ABX. PATIENT IS AMBULATORY WITH STEADY GAIT. DENIES NAUSEA OR VOMITING AT THIS TIME. CALL LIGHT WITHIN REACH. ASPIRATION, FALL AND SAFETY PRECAUTIONS MAINTAINED. ALL NEEDS ATTENDED TO AT THIS TIME. WILL ENDORSE PLAN OF CARE TO ONCOMING SHIFT RN.
[2022-03-06 06:35] LABS: BASOPHILS % (AUTO) 0.2 % (0.0-2.0); EOSINOPHILS % (AUTO) 0.4 % (0.0-6.0); HEMATOCRIT 31 % (33-45); HEMOGLOBIN 10.7 g/dL (11.5-14.8); LYMPHOCYTES % (AUTO) 8.3 % (20.0-44.0); MEAN CORPUSCULAR HGB CONC 34 g/dl (31.0-36.0); MEAN CORPUSCULAR VOLUME 89 fL (82-100); MONOCYTES # (AUTO) 1.6 K/uL (0.1-1.30); MONOCYTES % (AUTO) 13.4 % (2.0-12.0); NEUTROPHILS # (AUTO) 9.4 K/uL (1.8-8.9); NEUTROPHILS % (AUTO) 77.7 % (43.0-81.0); PLATELET COUNT (AUTO) 177 K/uL (150-450)
[2022-03-06 06:57] LABS: CREATININE 0.5 mg/dL (0.6-1.3); MAGNESIUM 2.3 mg/dL (1.8-2.4); PHOSPHORUS 2.4 mg/dL (2.5-4.9); POTASSIUM 3.6 mmol/L (3.5-5.1)
--- NOTE | 2022-03-06 07:33 | NUR ---
MS/RN OPENING NOTE RECEIVED PATIENT AWAKE IN BED. PATIENT IS ALERT AND ORIENTED X 4. NO PAIN AT THIS TIME. CONTINUES ON ROOM AIR WITH NO S/SX OF RESPIRATORY DISTRESS NOTED. IV ACCESS TO RIGHT AC #20G INTACT AND PATENT. CONTINUES ON IV ABX. PATIENT IS AMBULATORY. NO PAIN NOTED. ALL SAFETY MEASURES IN PLACE. CALL LIGHT WITHIN REACH. ASPIRATION, FALL AND SAFETY PRECAUTIONS MAINTAINED. WILL CONTINUE TO MONITOR.
[2022-03-06 07:47] LABS: CALCIUM, SERUM 8.3 mg/dL (8.5-10.1)
[2022-03-06 08:00] VITALS: BP 100/52
[2022-03-06] MEDS: MAG HYDROX/AL HYDROX/SIMETH 30 ML UDC PO PRN (12:08)
[2022-03-06] MEDS: ACETAMINOPHEN 325 MG TABLET PO PRN (14:48)
[2022-03-06] MEDS: GUAIFENESIN/D-METHORPHAN HB 5 ML UDC PO PRN (14:48)
[2022-03-06] MEDS ORDERED: Sodium Phosphate 15 MMOL in IV NS 0.9% 245 ML IV SCH (16:00)
[2022-03-06 16:08] VITALS: BP 117/64
[2022-03-06] MEDS: CEFTRIAXONE 1 G in IV D5W 50 ML IV SCH (16:23)
--- NOTE | 2022-03-06 18:26 | NUR ---
MS/RN CLOSING NOTE PATIENT AWAKE IN BED. PATIENT IS ALERT AND ORIENTED X 4. NO PAIN AT THIS TIME. CONTINUES ON ROOM AIR WITH NO S/SX OF RESPIRATORY DISTRESS NOTED. IV ACCESS TO RIGHT AC #20G INTACT AND PATENT. CONTINUES ON IV ABX. PATIENT IS AMBULATORY. NO PAIN NOTED. ALL DUE MEDS GIVEN ORDERED. ALL SAFETY MEASURES IN PLACE. CALL LIGHT WITHIN REACH. ASPIRATION, FALL AND SAFETY PRECAUTIONS MAINTAINED. WILL ENDORS EFOR JUDY.
[2022-03-06 20:00] VITALS: BP 122/69
[2022-03-07] MEDS: ONDANSETRON HCL/PF 4 MG/2 ML VIAL IVP PRN (00:23)
--- NOTE | 2022-03-07 00:27 | NUR ---
MS/RN NOTE PATIENT WITH C/O NAUSEA. NO EMESIS PRESENT. ADMINISTERED PRN ZOFRAN PER MD ORDERS. SUPPLIED EMESIS BAG AND ICE CHIPS. ALL NEEDS ATTENDED TO AT THIS TIME.
[2022-03-07 06:24] LABS: BASOPHILS % (AUTO) 0.4 % (0.0-2.0); EOSINOPHILS % (AUTO) 0.6 % (0.0-6.0); HEMATOCRIT 33 % (33-45); HEMOGLOBIN 11.1 g/dL (11.5-14.8); LYMPHOCYTES # (AUTO) 2.1 K/uL (0.8-4.8); LYMPHOCYTES % (AUTO) 22.9 % (20.0-44.0); MEAN CORPUSCULAR HGB CONC 34 g/dl (31.0-36.0); MEAN CORPUSCULAR VOLUME 88 fL (82-100); MONOCYTES # (AUTO) 1.1 K/uL (0.1-1.30); MONOCYTES % (AUTO) 12.3 % (2.0-12.0); NEUTROPHILS # (AUTO) 5.9 K/uL (1.8-8.9); NEUTROPHILS % (AUTO) 63.8 % (43.0-81.0); PLATELET COUNT (AUTO) 235 K/uL (150-450); RED BLOOD CELL COUNT(AUTO) 3.68 MIL/uL (4.0-5.2); WHITE BLOOD COUNT (AUTO) 9.3 K/uL (4.3-11.0)
--- NOTE | 2022-03-07 06:30 | NUR ---
MS/RN CLOSING NOTE PATIENT CURRENTLY RESTING IN BED. AWAKE, ALERT AND ORIENTED X 4. ABLE TO MAKE NEEDS KNOWN. DENIES PAIN AT THIS TIME. CONTINUES ON ROOM AIR WITH NO S/SX OF RESPIRATORY DISTRESS NOTED. IV ACCESS TO RIGHT AC #20G INTACT AND PATENT. CONTINUES ON IV ABX. PATIENT IS AMBULATORY WITH STEADY GAIT. DENIES NAUSEA OR VOMITING AT THIS TIME. CALL LIGHT WITHIN REACH. ASPIRATION, FALL AND SAFETY PRECAUTIONS MAINTAINED. WILL ENDORSE PLAN OF CARE TO ONCOMING SHIFT RN.
--- NOTE | 2022-03-07 07:30 | NUR ---
RN OPENING NOTE PATIENT IS IN BED AWAKE, ALERT ORIENTED X 4. ON ROOM AIR, WITH OXYGEN SATURATION AT 97%. DENIES PAIN, BREATHING UNLABORED, AND NOT IN ANY FORM OF DISTRESS. RIGHT ANTECUBITAL SALINE LOCK INTACT AND PATENT, NO SIGNS OF INFILTRATION NOTED. BED IS LOCKED IN LOWEST POSITION, 3 SIDE RAILS UP, CALL LIGHT WITHIN REACH. WILL CONTINUE TO MONITOR THROUGHOUT SHIFT.
[2022-03-07 08:00] VITALS: BP 122/69
[2022-03-07 08:06] LABS: ALBUMIN 3.1 g/dL (3.4-5.0); BILIRUBIN,DIRECT 0.1 mg/dL (0.0-0.2); BILIRUBIN,TOTAL 0.7 mg/dL (0.2-1.0); CALCIUM, SERUM 8.2 mg/dL (8.5-10.1); CREATININE 0.6 mg/dL (0.6-1.3); MAGNESIUM 2.3 mg/dL (1.8-2.4); PHOSPHORUS 2.7 mg/dL (2.5-4.9); TOTAL PROTEIN, SERUM 7.6 g/dL (6.4-8.2)
[2022-03-07 08:25] LABS: POTASSIUM 3.4 mmol/L (3.5-5.1)
[2022-03-07] MEDS ORDERED: POTASSIUM CHLORIDE 20 MEQ TAB.PRT.SR PO SCH (10:00)
[2022-03-07] MEDS: POTASSIUM CL. PREMIX PERIPHER. 50 ML IV SCH ×2 (11:15→12:00)
--- NOTE | 2022-03-07 13:00 | NUR ---
RN NOTE 2ND BAG OF POTASSIUM IV INFUSION WAS NOT GIVEN DUE TO PATIENT COMPLAINING OF PAIN IN IV SITE. NO INFILTRATION NOTED AND NO PHLEBITIS NOTED. IN ADDITION, PATIENT IS GOING TO RADIOLOGY FOR HIDA SCAN IN 30 MINUTES. SO NOT TO INTERRUPT INFUSION, I REQUESTED PHARMACY TO SHIFT REMAINING 10 MEQ OF POTASSIUM TO ORAL ROUTE.
--- NOTE | 2022-03-07 13:30 | NUR ---
RN NOTE PATIENT LEFT UNIT FOR HIDA SCAN, IN STABLE CONDITION.
--- NOTE | 2022-03-07 15:00 | NUR ---
RN NOTE PATIENT WAS BROUGHT BACK TO UNIT FROM HIDA SCAN IN STABLE CONDITION.
[2022-03-07] MEDS: CEFTRIAXONE 1 G in IV D5W 50 ML IV SCH (15:49)
[2022-03-07 16:00] VITALS: BP 121/71
[2022-03-07] MEDS ORDERED: POTASSIUM CHLORIDE 10 MEQ TABLET.SA PO ONE (16:00)
--- NOTE | 2022-03-07 18:44 | NUR ---
RN CLOSING NOTE PATIENT IS RESTING COMFORTABLY IN BED AND REMAINED STABLE THROUGHOUT SHIFT. DENIES PAIN, BREATHING UNLABORED AND NOT IN ANY FORM OF DISTRESS. RIGHT ANTECUBITAL IV SALINE LOCK INTACT AND PATENT, WITH NO SIGNS OF INFILTRATION OR PHLEBITIS NOTED. PATIENT TOLERATES ROOM ARM WITH O2 SAT AT 99%. BED IS LOCKED IN LOWEST POSITION, 3 SIDE RAILS UP, CALL LIGHT WITHIN REACH. WILL ENDORSE TO APPRAISAL SPECIALIST NURSE FOR CONTINUITY OF CARE.
--- NOTE | 2022-03-07 19:22 | NUR ---
RN OPENING NOTE PATIENT IS RESTING COMFORTABLY IN BED. DENIES PAIN, BREATHING UNLABORED AND NOT IN ANY FORM OF DISTRESS. RIGHT ANTECUBITAL IV SALINE LOCK INTACT AND PATENT, WITH NO SIGNS OF INFILTRATION OR PHLEBITIS NOTED. PATIENT TOLERATES ROOM ARM WITH O2 SAT AT 99%. BED IS LOCKED IN LOWEST POSITION, 3 SIDE RAILS UP, CALL LIGHT WITHIN REACH. WILL CONTINUE. TO MONITOR.
[2022-03-07 20:00] VITALS: BP_SYST 108; BP_SYST 122; BP_DIAS 70; BP_DIAS 72
--- NOTE | 2022-03-08 06:45 | NUR ---
RN CLOSING NOTE PATIENT IS RESTING COMFORTABLY IN BED. DENIES PAIN, BREATHING UNLABORED AND NOT IN ANY FORM OF DISTRESS. RIGHT ANTECUBITAL IV SALINE LOCK INTACT AND PATENT, WITH NO SIGNS OF INFILTRATION OR PHLEBITIS NOTED. PATIENT TOLERATES ROOM ARM WITH O2 SAT AT 99%. BED IS LOCKED IN LOWEST POSITION, 3 SIDE RAILS UP, CALL LIGHT WITHIN REACH. WILL ENDORSE CARE TO DAY SHIFT NURSE
[2022-03-08 06:59] LABS: BASOPHILS % (AUTO) 0.6 % (0.0-2.0); EOSINOPHILS % (AUTO) 1.5 % (0.0-6.0); HEMATOCRIT 33 % (33-45); LYMPHOCYTES # (AUTO) 1.5 K/uL (0.8-4.8); LYMPHOCYTES % (AUTO) 23.7 % (20.0-44.0); MEAN CORPUSCULAR HGB CONC 34 g/dl (31.0-36.0); MEAN CORPUSCULAR VOLUME 89 fL (82-100); MONOCYTES # (AUTO) 0.5 K/uL (0.1-1.30); MONOCYTES % (AUTO) 8.5 % (2.0-12.0); NEUTROPHILS # (AUTO) 4.3 K/uL (1.8-8.9); NEUTROPHILS % (AUTO) 65.7 % (43.0-81.0); PLATELET COUNT (AUTO) 255 K/uL (150-450); RED BLOOD CELL COUNT(AUTO) 3.67 MIL/uL (4.0-5.2); WHITE BLOOD COUNT (AUTO) 6.5 K/uL (4.3-11.0)
--- NOTE | 2022-03-08 07:30 | NUR ---
MS RN OPENING NOTE PATIENT AWAKE, ALERT ORIENTED X 4, ABLE TO MAKE NEEDS KNOWN. PT IS ON ROOM AIR, TOLERATING WELL, VLAD S/S OF SOB OR ACUTE DISTRESS NOTED. IV ACCESS AT RIGHT ANTECUBITAL SALINE LOCK INTACT AND PATENT, NO SIGNS OF INFILTRATION NOTED. BED IS LOCKED IN LOWEST POSITION, 3 SIDE RAILS UP, CALL LIGHT WITHIN REACH. WILL CONTINUE TO MONITOR THROUGHOUT SHIFT.
[2022-03-08 08:00] VITALS: BP 121/68
[2022-03-08 08:02] LABS: BILIRUBIN,DIRECT 0.1 mg/dL (0.0-0.2); BILIRUBIN,TOTAL 0.4 mg/dL (0.2-1.0); CALCIUM, SERUM 8.6 mg/dL (8.5-10.1); CREATININE 0.6 mg/dL (0.6-1.3); MAGNESIUM 2.6 mg/dL (1.8-2.4); PHOSPHORUS 3.3 mg/dL (2.5-4.9); POTASSIUM 3.9 mmol/L (3.5-5.1); TOTAL PROTEIN, SERUM 7.6 g/dL (6.4-8.2)
[2022-03-08] MEDS ORDERED: CEPH500C2 PO (08:28)
--- NOTE | 2022-03-08 11:00 | NUR ---
MS RADIOGRAPHY TECHNICIAN NOTES: PATIENT AWAKE, ALERT ORIENTED X 4, ABLE TO MAKE NEEDS KNOWN. PT IS ON ROOM AIR, TOLERATING WELL, NO S/S OF SOB OR ACUTE DISTRESS NOTED. PT IS STABLE UPON DC. IV ACCESS DISCONTINUED, PT TEACHING DONE AT BEDSIDE, PT VERBALIZED UNDERSTANDING. DISCHARGE DOCUMENTS PRINTED, SIGNED AND GIVEN TO PATIENT, BELONGINGS RECONCILED AND SIGNED, ESCORTED PT TO LOBBY.
== END 2022-03-08 11:00 | disposition home or self-care (01) | DRG 872 ==
LOC: ER 16:40 → MED 19:50
PROVIDERS: ADMIT Nurse Practitioner Acute Care; ATTEND Nurse Practitioner Acute Care
DX: A41.9 Sepsis, unspecified organism (principal); E87.1 Hypo-osmolality and hyponatremia; N13.6 Pyonephrosis; E87.6 Hypokalemia; N20.0 Calculus of kidney; Z93.6 Other artificial openings of urinary tract status; Z87.440 Personal history of urinary (tract) infections; Z86.16 Personal history of COVID-19; Z87.442 Personal history of urinary calculi; Z98.890 Other specified postprocedural states; Z79.51 Long term (current) use of inhaled steroids; K42.9 Umbilical hernia without obstruction or gangrene; B96.1 Klebsiella pneumoniae [K. pneumoniae] as the cause of diseases classified elsewhere; K80.20 Calculus of gallbladder without cholecystitis without obstruction
CPT/HCPCS: 36415; 76700-TC; 78226; 80048-TC; 80076-TC; 81001; 83690-TC; 83735-TC; 84100-TC; 84132-TC; 84703-TC; 85025-TC; 87040-TC; 87081-TC; 87086-TC; 87186-TC; A9537; A9563; C9803; G0378; J0696; J2270; J2405; J2543; J3480; J7030; J7040; J7050; J7060; Q9967

== ENCOUNTER 2022-03-26 16:03 | Inpatient (IN) | payer OTHER ==
[~2022-03-26] VITALS: Ht 149.9 cm; Wt 57.2 kg
[~2022-03-26 16:03] MED LIST changes: -ACET-868 PO; +ALBU18HF2 IH; -CEPH250S PO; +CEPH500C2 PO; -HYDR-3972 PO; -ZOLP5TAB2 PO
--- NOTE | 2022-03-26 16:20 | NUR ---
RECIVED PT 46 YRS FEMALE C/O ELVATED TEMP STRTED THIS MORNING
[2022-03-26] MEDS ORDERED: IV NS 0.9% 1,000 ML BAG IV ONE (16:30)
--- NOTE | 2022-03-26 16:40 | NUR ---
BLOOD DROW BY LAB TACK BLOOD CUTURE DONE IVF NS INFUSED AND PATENT
[2022-03-26 16:54] LABS: BASOPHILS % (AUTO) 0.3 % (0.0-2.0); EOSINOPHILS % (AUTO) 0.3 % (0.0-6.0); HEMATOCRIT 36 % (33-45); HEMOGLOBIN 12.2 g/dL (11.5-14.8); LYMPHOCYTES # (AUTO) 1.7 K/uL (0.8-4.8); LYMPHOCYTES % (AUTO) 12.6 % (20.0-44.0); MEAN CORPUSCULAR HGB CONC 34 g/dl (31.0-36.0); MEAN CORPUSCULAR VOLUME 88 fL (82-100); MONOCYTES # (AUTO) 1.2 K/uL (0.1-1.30); MONOCYTES % (AUTO) 9.1 % (2.0-12.0); NEUTROPHILS # (AUTO) 10.6 K/uL (1.8-8.9); NEUTROPHILS % (AUTO) 77.7 % (43.0-81.0); PLATELET COUNT (AUTO) 289 K/uL (150-450); RED BLOOD CELL COUNT(AUTO) 4.11 MIL/uL (4.0-5.2); WHITE BLOOD COUNT (AUTO) 13.6 K/uL (4.3-11.0)
[2022-03-26] MEDS ORDERED: CEFTRIAXONE 1GM BAG (ER ONLY) 1 GM/50 ML PIGGYBACK IV ONE (17:00)
[2022-03-26] MEDS ORDERED: CEFTRIAXONE 2 G in IV D5W 100 ML IV ONE (17:00)
[2022-03-26 17:02] LABS: BILIRUBIN,URINE NEGATIVE (NEGATIVE); COLOR,URINE YELLOW (YELLOW); LEUKOCYTE ESTERASE ,URINE LARGE (NEGATIVE); NITRITE, URINE POSITIVE (NEGATIVE); PROTEIN,URINE NEGATIVE (NEGATIVE); UGLUCOSE NEGATIVE (NEGATIVE); UROBILINOGEN,URINE 0.2 EU/dL (0.2)
[2022-03-26 17:12] LABS: BACTERIA,URINE 4+ /HPF (None Seen); SQUAMOUS EPITHELIAL CELL,UR Few /HPF (None Seen); WBC,URINE TOO NUMEROUS TO COUN /HPF (0-3)
[2022-03-26 17:15] LABS: CALCIUM, SERUM 9.1 mg/dL (8.5-10.1); CARBON DIOXIDE 29 mmol/L (21-32); CHLORIDE 97 mmol/L (98-107); CREATININE 0.6 mg/dL (0.6-1.3); GLUCOSE 99 mg/dL (74-106); POTASSIUM 3.7 mmol/L (3.5-5.1); SODIUM SERUM 133 mmol/L (136-145); UREA NITROGEN, BLOOD 12 mg/dL (7-18)
[2022-03-26 17:21] LABS: ALANINE AMINOTRANSFERASE 34 U/L (12-78); ALBUMIN 3.9 g/dL (3.4-5.0); ALKALINE PHOSPHATASE 64 U/L (46-116); ASPARTATE AMINOTRANSFERASE 27 U/L (15-37); BILIRUBIN,DIRECT 0.1 mg/dL (0.0-0.2); BILIRUBIN,TOTAL 0.8 mg/dL (0.2-1.0); TOTAL PROTEIN, SERUM 8.7 g/dL (6.4-8.2)
--- NOTE | 2022-03-26 17:39 | NUR ---
COVID ANTIGEN SWAB DONE AND SENT TO THE LAB
--- NOTE | 2022-03-26 18:45 | NUR ---
UROLOGY, DR. LONG SPEAKING WITH DR. FOY.
[2022-03-26] MEDS ORDERED: ACETAMINOPHEN ES 500 MG TABLET ONE (19:46)
[2022-03-26] MEDS ORDERED: PIPERACILLIN /TAZOBACTAM 3.375 G in IV D5W 50 ML IV ONE (20:00)
[2022-03-26] MEDS ORDERED: ACETAMINOPHEN 325 MG TABLET PO ONE (20:00)
[2022-03-26] MEDS ORDERED: CEFTRIAXONE 1GM BAG (ER ONLY) 50 ML IV ONE (20:16)
[2022-03-26] MEDS ORDERED: PIPERACILLIN /TAZOBACTAM 3.375 G VIAL IV ONE (20:18)
[2022-03-26] MEDS ORDERED: MORPHINE SULFATE INJ 2 MG/ML DISP.SYRIN IV PRN (20:30)
[2022-03-26] MEDS ORDERED: ALBUTEROL FS 2.5 MG/0.5 ML VIAL.NEB IH PRN (20:30)
[2022-03-26] MEDS ORDERED: ONDANSETRON HCL/PF 4 MG/2 ML VIAL IVP PRN (20:30)
--- NOTE | 2022-03-26 21:13 | NUR ---
report given to michelle rodriguez
--- NOTE | 2022-03-26 21:28 | NUR ---
PATIENT TRANSFERRED, VSS.
[2022-03-26 21:35] VITALS: BP 114/62
[2022-03-26] MEDS: IV NS 0.9% 1,000 ML IV SCH (23:31)
[2022-03-26] MEDS: HEPARIN SODIUM, PORCINE 5000 UNITS/1 ML VIAL SQ SCH (23:43)
[2022-03-27] MEDS: ACETAMINOPHEN 325 MG TABLET PO PRN ×4 (01:40→21:08)
--- NOTE | 2022-03-27 01:43 | NUR ---
MS RN NOTE PATIENT REPORTS N/V X1 EMESIS. GIVEN ZOFRON PRN ORDERED. TEMP. 100.5, STARTED ON COOLING MEASURES AND GIVEN TYLENOL 650 MG PRN ORDERED. WILL MONITOR.
--- NOTE | 2022-03-27 01:46 | NUR ---
ADMISSION NOTES PATIENT TRANSFERRED IN UNIT AT AROUND 2130. A/OX4. NO S/S OF APPARENT DISTRESS, AND AMBULATES WITH STEADY GAIT. IV ACCESS ON L. AC #20G INTACT AND PATENT--STARTED ON 75MLS/HR IV NS. WISHES TO BE FULL CODE. PER PATIENT SHE DROVE TO THE HOSPITAL AFTER WORK HENCE HER PARK IS IN THE EMERGENCY PARKING LOT-- MAKE SECURITY AWARE AND PER SECURITY IT IS OKAY. PATIENT VACCINATED WITH COVID. NEW ID BAND ON PATIENT. BELONGINGS INVENTORIED AND SIGNED FOR. ORIENTED IN THE UNIT AND THE USE OF CALL LIGHT. SAFETY IN PLACE. V/S FOLLOWS: 114/62, HR-93, RR-20, T-98.4, SATURATION 96% IN ROOM AIR. WILL CONTINUE WITH PATIENT'S PLAN OF CARE.
--- NOTE | 2022-03-27 03:38 | NUR ---
MS RN NOTE TEMP 100.9, CONTINUING WITH COOLING MEASURES. WILL RECHECK IN THE AM
--- NOTE | 2022-03-27 06:16 | NUR ---
MS RN NOTE T- 97.7, NO FEVER AND DENIES N/V THIS AM.
--- NOTE | 2022-03-27 06:17 | NUR ---
MS RN CLOSING NOTE PATIENT IN BED, A/OX4. NO S/S OF APPARENT DISTRESS ON ROOM AIR. DENIES ANY PAIN, DISCOMFORT ON HER FLANK AREA-- MANAGED WITH ICE PACKS. DENIES N/V THIS AM. NO FEVER AT THIS TIME. NEEDS ATTENDED. ALL SCHEDULED MEDICATION ADMINISTERED. IV NS RUNNING @75MLS/HR. WILL ENDORSE TO MORNING SHIFT RN FOR CONTINUITY OF CARE.
[2022-03-27 06:39] LABS: BASOPHILS % (AUTO) 0.3 % (0.0-2.0); EOSINOPHILS % (AUTO) 0.2 % (0.0-6.0); HEMATOCRIT 32 % (33-45); HEMOGLOBIN 11.1 g/dL (11.5-14.8); LYMPHOCYTES # (AUTO) 1.4 K/uL (0.8-4.8); LYMPHOCYTES % (AUTO) 12.8 % (20.0-44.0); MEAN CORPUSCULAR HGB CONC 35 g/dl (31.0-36.0); MEAN CORPUSCULAR VOLUME 89 fL (82-100); MONOCYTES # (AUTO) 1.4 K/uL (0.1-1.30); MONOCYTES % (AUTO) 13.7 % (2.0-12.0); NEUTROPHILS # (AUTO) 7.7 K/uL (1.8-8.9); PLATELET COUNT (AUTO) 229 K/uL (150-450); WHITE BLOOD COUNT (AUTO) 10.6 K/uL (4.3-11.0)
[2022-03-27 07:25] LABS: ALBUMIN 3.2 g/dL (3.4-5.0); BILIRUBIN,TOTAL 0.9 mg/dL (0.2-1.0); CALCIUM, SERUM 8.1 mg/dL (8.5-10.1); CREATININE 0.6 mg/dL (0.6-1.3); MAGNESIUM 2.3 mg/dL (1.8-2.4); PHOSPHORUS 3.4 mg/dL (2.5-4.9); POTASSIUM 3.8 mmol/L (3.5-5.1); TOTAL PROTEIN, SERUM 7.7 g/dL (6.4-8.2)
[2022-03-27 08:00] VITALS: BP 122/65
--- NOTE | 2022-03-27 08:00 | NUR ---
RN OPENING NOTE PATIENT RECEIVED IN BED, AO X 4, ABLE TO RESPONDS ALL STIMULI. IN NO ACUTE DISTRESS NOTED. RESPIRATORY EVEN AND UNLABORED ON ROOM AIR. SKIN IS WARM TO TOUCH, KEEP CLEAN/DRY. KEPT ELEVATED HOB FOR ENSURE AIRWAY AND ASPIRATION PRECAUTION, ALSO LOWEST POSITION OF THE BED, S/R UP X 3, BED ALARM IS ON AT ALL THE TIMES. ALL SAFETY PRECAUTION APPLIED. CALL LIGHT WITHIN REACH, WILL CONTINUE TO MONITOR.
[2022-03-27] MEDS: HEPARIN SODIUM, PORCINE 5000 UNITS/1 ML VIAL SQ SCH ×2 (08:50→20:33)
[2022-03-27] MEDS: IV NS 0.9% 1,000 ML IV SCH (09:02)
[2022-03-27 16:00] VITALS: BP 114/62
[2022-03-27] MEDS: CEFTRIAXONE 1 G in IV D5W 50 ML IV SCH (16:53)
[2022-03-27] MEDS ORDERED: CEFTRIAXONE 1 G in IV D5W 50 ML IV SCH (17:00)
--- NOTE | 2022-03-27 18:31 | NUR ---
RN CLOSING NOTE PATIENT IN BED RESTING. IN NO ACUTE DISTRESS NOTED. RESPIRATORY EVEN AND UNLABORED ON ROOM AIR. SKIN IS WARM TO TOUCH, KEEP CLEAN/DRY. NO S/S OF ADVERSE REACTION OBSERVED FROM IV ABX. ENCOURAGED ORAL FLUID INTAKE TOLERATED. KEPT ELEVATED HOB FOR ENSURE AIRWAY AND ASPIRATION PRECAUTION, BED IN LOWEST POSITION AND LOCK. BED ALARM IS ON AT ALL THE TIMES. ALL SAFETY MEASURED IN PLACED. CALL LIGHT WITHIN REACH, WILL ENDORSED TO NEXT SHIFT.
[2022-03-27 20:00] VITALS: BP 135/74
[2022-03-27 20:20] VITALS: BP 135/79
--- NOTE | 2022-03-27 20:34 | NUR ---
ANTICOAGULANT H/H 11. PLT 229 No active bleeding. Heparin injection given co signed by SITA Wallace.
--- NOTE | 2022-03-27 21:09 | NUR ---
TEMP Temp 100.1 Skin warm. Cooling measure provided. Tylenol 650mg given. Will reassess.
[2022-03-28 06:06] LABS: BASOPHILS % (AUTO) 0.4 % (0.0-2.0); EOSINOPHILS % (AUTO) 0.4 % (0.0-6.0); HEMATOCRIT 33 % (33-45); HEMOGLOBIN 11.1 g/dL (11.5-14.8); LYMPHOCYTES # (AUTO) 1.6 K/uL (0.8-4.8); LYMPHOCYTES % (AUTO) 16.2 % (20.0-44.0); MEAN CORPUSCULAR HGB CONC 34 g/dl (31.0-36.0); MEAN CORPUSCULAR VOLUME 88 fL (82-100); MONOCYTES # (AUTO) 1.5 K/uL (0.1-1.30); MONOCYTES % (AUTO) 15.3 % (2.0-12.0); NEUTROPHILS # (AUTO) 6.5 K/uL (1.8-8.9); NEUTROPHILS % (AUTO) 67.7 % (43.0-81.0); PLATELET COUNT (AUTO) 218 K/uL (150-450); WHITE BLOOD COUNT (AUTO) 9.6 K/uL (4.3-11.0)
[2022-03-28] MEDS: ACETAMINOPHEN 325 MG TABLET PO PRN (06:24)
[2022-03-28 06:28] LABS: ALBUMIN 3.2 g/dL (3.4-5.0); BILIRUBIN,TOTAL 0.7 mg/dL (0.2-1.0); CALCIUM, SERUM 8.4 mg/dL (8.5-10.1); CREATININE 0.6 mg/dL (0.6-1.3); MAGNESIUM 2.4 mg/dL (1.8-2.4); PHOSPHORUS 2.9 mg/dL (2.5-4.9); POTASSIUM 3.5 mmol/L (3.5-5.1); TOTAL PROTEIN, SERUM 7.7 g/dL (6.4-8.2)
--- NOTE | 2022-03-28 06:31 | NUR ---
END OF SHIFT REPORT Patient is A/O x4 Stable on room air. Independent with mobility. On IV abx. Temp max 100.1F curved down to 99.1F Voiding urine, no dysuria no hematuria. Urine cx/Bld cx pending result. Plan for Urology consult, cont abx. C/o Headache, Tylenol given. Now Temp 98.1F. Will endorse to oncoming RN.
--- NOTE | 2022-03-28 07:44 | NUR ---
RN OPENING NOTE PATIENT RECEIVED IN BED, AO X 4, ABLE TO RESPONDS ALL STIMULI. IN NO ACUTE DISTRESS NOTED. NO FEVER AT THIS TIME, BUT HEADACHE. RESPIRATORY EVEN AND UNLABORED ON ROOM AIR. SKIN IS WARM TO TOUCH, KEEP CLEAN/DRY. KEPT ELEVATED HOB FOR ENSURE AIRWAY AND ASPIRATION PRECAUTION, ALSO LOWEST POSITION OF THE BED, S/R UP X 3, BED ALARM IS ON AT ALL THE TIMES. ALL SAFETY PRECAUTION APPLIED. CALL LIGHT WITHIN REACH, WILL CONTINUE TO MONITOR.
[2022-03-28 07:54] LABS: BASOPHILS % (MANUAL) 0 % (0.0-2.0); EOSINOPHILS % (MANUAL) 1 % (0-4); LYMPHOCYTES % (MANUAL) 13 % (16-48); MONOCYTES % (MANUAL) 11 % (0-11.0); NEUTROPHILS % (MANUAL) 75 (42-76)
[2022-03-28 08:00] VITALS: BP 109/61
[2022-03-28] MEDS: HEPARIN SODIUM, PORCINE 5000 UNITS/1 ML VIAL SQ SCH ×2 (10:23→20:26)
--- NOTE | 2022-03-28 12:22 | NUR ---
PATIENT C/O ACIDIC STOMACH, NEW ORDER MAALOX PRN. WILL CONTINUE TO MONITOR.
[2022-03-28] MEDS ORDERED: MAG HYDROX/AL HYDROX/SIMETH 30 ML UDC PO PRN (12:30)
[2022-03-28 16:00] VITALS: BP 130/66
[2022-03-28] MEDS: CEFTRIAXONE 1 G in IV D5W 50 ML IV SCH (16:33)
--- NOTE | 2022-03-28 19:24 | NUR ---
RN OPENING NOTE PATIENT IN BED RESTING. IN NO ACUTE DISTRESS NOTED. RESPIRATORY EVEN AND UNLABORED ON ROOM AIR. SKIN IS WARM TO TOUCH, KEEP CLEAN/DRY. ENCOURAGED ORAL FLUID INTAKE TOLERATED. KEPT ELEVATED HOB FOR ENSURE AIRWAY AND ASPIRATION PRECAUTION, BED IN LOWEST POSITION AND LOCK. BED ALARM IS ON AT ALL THE TIMES. ALL SAFETY MEASURED IN PLACED. CALL LIGHT WITHIN REACH, WILL CONTINUE TO MONITOR.
[2022-03-28 20:00] VITALS: BP 131/77
--- NOTE | 2022-03-28 20:26 | NUR ---
RN NOTES PT REFUSED HEPARIN SQ PT STARED " I WALK AROUND THE HALLWAYS FREQUENTLY I DON'T THINK I NEED THAT MEDICATION. RISK AND BENEFITS EXPLAINED X3 REFUSED X3. WILL CONTINUE TO MONITOR.
--- NOTE | 2022-03-29 06:35 | NUR ---
RN CLOSING NOTE PATIENT IN BED RESTING. IN NO ACUTE DISTRESS NOTED. RESPIRATORY EVEN AND UNLABORED ON ROOM AIR. SKIN IS WARM TO TOUCH, KEEP CLEAN/DRY. ALL DUE MEDS GIVEN AND TOLERATED WELL.ENCOURAGED ORAL FLUID INTAKE TOLERATED. KEPT ELEVATED HOB FOR ENSURE AIRWAY AND ASPIRATION PRECAUTION, BED IN LOWEST POSITION AND LOCK. BED ALARM IS ON AT ALL THE TIMES. ALL SAFETY MEASURED IN PLACED. CALL LIGHT WITHIN REACH, WILL ENDORSE TO DAY SHIFT FOR JUDY.
--- NOTE | 2022-03-29 07:40 | NUR ---
RN OPENING NOTE PATIENT RECEIVED IN BED AWAKE. A/OX4. NO S/SX OF PAIN OR DISTRESS REPORTED OR OBSERVED. NO SOB OR OTHER RESPIRATORY ISSUES NOTED. PATIENT ABLE TO VERBALIZE ALL NEEDS. ABLE TO AMBULATE TO BATHROOM WITHOUT ASSIST. SAFETY MEASURES REMAIN IN TACT WITH BED IN LOWEST POSITION AND LOCKED. SIDERAIL UPX2 & CALL LIGHT WITHIN REACH. WILL CONTINUE TO MONITOR.
[2022-03-29] MEDS: HEPARIN SODIUM, PORCINE 5000 UNITS/1 ML VIAL SQ SCH (08:23)
== END 2022-03-29 14:30 | disposition home or self-care (01) | DRG 690 ==
LOC: ER 16:07 → TELE 20:52 → MED 21:58
PROVIDERS: ADMIT Internal Medicine
DX: N39.0 Urinary tract infection, site not specified (principal); E87.1 Hypo-osmolality and hyponatremia; Z20.822 Contact with and (suspected) exposure to COVID-19; Z96.0 Presence of urogenital implants; Z79.51 Long term (current) use of inhaled steroids; B96.1 Klebsiella pneumoniae [K. pneumoniae] as the cause of diseases classified elsewhere; N32.3 Diverticulum of bladder; Z87.440 Personal history of urinary (tract) infections; Z98.890 Other specified postprocedural states
CPT/HCPCS: 36415; 71045-TC; 76770-TC; 80048-TC; 80053-TC; 80076-TC; 81001; 83605-TC; 83735-TC; 84100-TC; 84484-TC; 84703-TC; 85025-TC; 85730-TC; 87040-TC; 87081-TC; 87086-TC; 87186-TC; C9803; G0378; J0696; J1644; J2405; J2543; J7030; J7060